=== PATIENT | male | born 1980 | race Caucasian/White ===

== ENCOUNTER 2025-01-07 15:39 | Outpatient (CLI) | payer BC, SELFPAY | END 2025-01-07 15:40 | disposition home or self-care (01) | PROVIDERS: PCP Physician Assistant Medical; Visit Provider Emergency Medicine | DX: Z00.01 Encounter for general adult medical examination with abnormal findings (principal); E78.1 Pure hyperglyceridemia; I10 Essential (primary) hypertension; Z11.3 Encounter for screening for infections with a predominantly sexual mode of transmission; Z11.4 Encounter for screening for human immunodeficiency virus [HIV]; Z11.59 Encounter for screening for other viral diseases | CPT/HCPCS: 80053; 80061; 86592; 86703; 86706; 86803; 87491; 87591 ==

== ENCOUNTER 2025-05-14 16:39 | Outpatient (CLI) | payer BC, SELFPAY | END 2025-05-14 16:40 | disposition home or self-care (01) | PROVIDERS: PCP Physician Assistant Medical; Visit Provider Physician Assistant Medical | DX: F10.90 Alcohol use, unspecified, uncomplicated (principal) | CPT/HCPCS: 80053; 82607; 82746; 84425; 84443 ==

== ENCOUNTER 2025-05-28 07:04 | Outpatient (CLI) | payer BC, SELFPAY ==
--- NOTE | 2025-05-28 07:15 | CRLHL7_ITS ---
For Patients: As a result of the Century Cures Act, medical imaging exams and procedure reports are released immediately into your electronic medical record. You may view this report before your referring provider. If you have questions, please contact your health care provider. CLINICAL HISTORY: ELEVATION OF LFTS COMPARISON: none TECHNIQUE: Real time mejía scale imaging and color Doppler analysis was performed of the abdomen. FINDINGS: Sonographic imaging demonstrates normal size and increased echotexture of the liver. The spleen is of normal size. The visualized pancreas appears normal. The proximal abdominal aorta and IVC appear normal. There is no evidence of ascites. The gallbladder is of normal size and there is no evidence of sludge or stones within the gallbladder lumen. The gallbladder wall measures 1.6 mm in thickness. The common bile duct measures 4.8 mm in size within the aisha hepatis. The kidneys appear symmetric. The right kidney measures 12.7 cm in length and the left kidney measures 14.3 cm. There is no evidence of a renal calculus or hydronephrosis. IMPRESSION: Moderate hepatic steatosis. Remainder unremarkable. Dictated by Hank Mitchell MD @ 05/28/2025 12:24:20 PM (Electronically Signed)
== END 2025-05-28 07:05 | disposition home or self-care (01) ==
LOC: US 07:05
PROVIDERS: PCP Physician Assistant Medical; Visit Provider Physician Assistant Medical
DX: R74.01 Elevation of levels of liver transaminase levels (principal); K76.0 Fatty (change of) liver, not elsewhere classified; F10.90 Alcohol use, unspecified, uncomplicated
CPT/HCPCS: 76700

== ENCOUNTER 2025-06-11 11:37 | Outpatient (CLI) | payer BC, SELFPAY | END 2025-06-11 11:38 | disposition home or self-care (01) | LOC: LKVREF 11:40 | PROVIDERS: PCP Physician Assistant Medical; Visit Provider Physician Assistant Medical | DX: I10 Essential (primary) hypertension (principal) | CPT/HCPCS: 80053 ==

== ENCOUNTER 2025-07-14 14:25 | Outpatient (CLI) | payer BC, SELFPAY | END 2025-07-14 14:26 | disposition home or self-care (01) | PROVIDERS: PCP Physician Assistant Medical; Visit Provider Physician Assistant Medical | DX: F10.90 Alcohol use, unspecified, uncomplicated (principal); F32.A Depression, unspecified | CPT/HCPCS: 80076; 82306 ==